=== PATIENT | female | born 1985 | race American Indian/Alaskan Native ===

== ENCOUNTER 2017-09-27 23:22 | Emergency (ER) | payer SELFPAY ==
[2017-09-27 23:43] VITALS: BP 217/127
== END 2017-09-28 01:51 | disposition left against medical advice (07) ==
LOC: ED 23:22
DX: K08.89 Other specified disorders of teeth and supporting structures (principal); Z53.21 Procedure and treatment not carried out due to patient leaving prior to being seen by health care provider